=== PATIENT | male | born 1985 | race Caucasian/White ===

== ENCOUNTER 2024-05-05 20:15 | Emergency (ER) | payer SELFPAY ==
[~2024-05-05] VITALS: Ht 190.5 cm; Wt 87.0 kg
[2024-05-05 20:19] VITALS: O2SAT 98
[2024-05-05 20:36] VITALS: BP 139/87; PULSE 84; RESP 18; TEMP 98.5; O2SAT 97
[2024-05-05 22:43] LABS: BASOPHILS % 0.7 % (0.0-2.0); EOSINOPHILS % 0.1 % (0.0-5.0); HEMOGLOBIN. 16.1 g/dL (14.0-18.0); MEAN CORPUSCULAR HEMOGLOBIN 32.5 pg (28.0-32.0); MEAN CORPUSCULAR HGB CONC 32.9 g/dL (31.0-37.0); MEAN CORPUSCULAR VOLUME 98.9 fL (80.0-94.0); MONOCYTES % 3.7 % (2.0-8.0); NEUTROPHILS % 58.5 % (40.0-76.0); RED BLOOD CELL COUNT 4.96 mill/uL (4.7-6.1); RED CELL DISTRIBUTION WIDTH 14.2 % (11.6-14.6); WHITE BLOOD COUNT 8.1 x1000/uL (4.5-11.0)
[2024-05-05 22:44] LABS: DIFFERENTIAL COMMENT 1
[2024-05-05 23:03] LABS: CHLORIDE 101 mEq/L (98-107); POTASSIUM 4.2 mEq/L (3.5-5.1); SODIUM 141 mEq/L (136-145)
[2024-05-05 23:04] LABS: CARBON DIOXIDE 23 mEq/L (21-32)
[2024-05-05 23:09] LABS: CREATININE 0.8 mg/dL (0.6-1.3); ETHANOL BLOOD 299 mg/dL (<10); GLUCOSE 71 mg/dL (70-105); UREA NITROGEN BLOOD 8 mg/dL (9-23)
[2024-05-05 23:15] LABS: MEAN PLATELET VOLUME 8.1 fl (7.4-10.4); PLATELET 233 x1000/uL (130-400)
== END 2024-05-06 03:00 | disposition left against medical advice (07) ==
LOC: ER 21:00
DX: F10.229 Alcohol dependence with intoxication, unspecified (principal); I10 Essential (primary) hypertension; Y90.8 Blood alcohol level of 240 mg/100 ml or more
CPT/HCPCS: 80048; 80320; 85025; 36415; 99283; Z7610; G0480